=== PATIENT | male | born 1960 | race Caucasian/White ===

== ENCOUNTER 2023-05-12 06:32 | Day surgery (SDC) | payer MEDICAID ==
[~2023-05-12] VITALS: Ht 182.9 cm; Wt 111.1 kg
[2023-05-12] MEDS ORDERED: MIDAZOLAM HCL 5 MG/5 ML VIAL ONE (08:45)
[2023-05-12] MEDS ORDERED: MEPERIDINE 100 MG INJ. 100 MG/ML VIAL ONE (08:45)
[2023-05-12] MEDS ORDERED: SIMETHICONE 40 MG/0.6 ML ML ONE ×2 (08:55→10:07)
[2023-05-12 11:53] VITALS: BP_SYST 146; PULSE 83; RESP 18; TEMP 97.9; O2SAT 98
== END 2023-05-12 10:30 | disposition home or self-care (01) ==
LOC: SDS 06:32 → SMU 06:32 → SDS 10:30
PROVIDERS: ATTEND Internal Medicine Gastroenterology
DX: R19.5 Other fecal abnormalities (principal); D12.5 Benign neoplasm of sigmoid colon; D50.8 Other iron deficiency anemias; K57.30 Diverticulosis of large intestine without perforation or abscess without bleeding; K64.8 Other hemorrhoids; E78.5 Hyperlipidemia, unspecified; Z98.890 Other specified postprocedural states; Z79.899 Other long term (current) drug therapy; Z85.038 Personal history of other malignant neoplasm of large intestine
CPT/HCPCS: 45385; 88305; 99152; 99153; G0378; J2250; J2175; 45384